=== PATIENT | male | born 1950 | race Two or more races ===

== ENCOUNTER 2022-12-17 08:10 | Inpatient (IN) | payer OTHER, MEDICAID ==
[~2022-12-17] VITALS: Ht 170.2 cm; Wt 95.3 kg
[2022-12-17 08:54] LABS: Basophils # (auto) 0 10 ^3/uL (0-0.2); Basophils % (auto) 0.4 % (0.0-2.0); Eosinophils # (auto) 0.1 10 ^3/uL (0-0.8); Eosinophils % (auto) 0.8 % (0.0-7.0); Hematocrit 43.8 % (41.0-53.0); Lymphocytes % (auto) 10.3 % (10.0-50.0); Mean Corpuscular Hgb Conc. 34.3 g/dL (32.0-36.0); Mean Corpuscular Volume 93.5 fL (80.0-100.0); Monocytes # (auto) 0.7 10 ^3/uL (0-1.3); Neutrophils # (auto) 7.9 10 ^3/uL (1.6-8.6); Neutrophils % (auto) 81.5 % (37.0-80.0); Nucleated Red Blood Cells % 0.1 %; Red Blood Cells 4.69 10^6/uL (4.5-5.90); Red Cell Distribution Width 12.9 % (11.8-14.3); White Blood Cell 9.6 10^3/uL (4.4-10.8)
[2022-12-17 09:14] LABS: Alanine Aminotransferase 15 U/L (7-40); Albumin 4.6 g/dL (3.2-4.8); Alkaline Phosphatase 102 U/L (46-116); Anion Gap 9 (5-15); Aspartate Aminotransferase 10 U/L (13-40); BUN/Creatinine Ratio 13.3 (10.0-20.0); Blood Urea Nitrogen 12 mg/dL (9-23); Calcium 9.5 mg/dL (8.5-10.1); Carbon Dioxide 27 mmol/L (20-30); Chloride 105 mmol/L (98-107); Glucose 104 mg/dL (74-106); Potassium 3.7 mmol/L (3.5-5.1); Sodium 141 mmol/L (136-145)
[2022-12-17 09:15] LABS: Bilirubin, Total 1.2 mg/dL (0.2-1.0); Total Protein 7.9 g/dL (5.7-8.2)
[2022-12-17 09:16] LABS: Urine Bacteria NONE SEEN /hpf (None Seen); Urine Blood Negative /uL (Negative); Urine Clarity Clear (Clear); Urine Color Yellow (Yellow); Urine Protein, UAD 1+ (Negative); Urine Specific Gravity 1.027 (1.001-1.035); Urine Urobilinogen Normal (Negative); Urine WBC 3 /hpf (0 - 3)
[2022-12-17] MEDS ORDERED: HYDROmorphone HCL 2 MG/ML VL/or syr IV PRN (10:15)
[2022-12-17] MEDS ORDERED: DOCUSATE SOD 100 MG CAP PO PRN (10:15)
[2022-12-17] MEDS ORDERED: ONDANSETRON HCL 4 MG/2 ML VIAL IV PRN (10:15)
[2022-12-17] MEDS ORDERED: DEXTROSE (50%) 50ML SYRG IV PRN (10:15)
[2022-12-17] MEDS ORDERED: hydrALAZINE HCL 20 MG/ML VL IV PRN (10:15)
[2022-12-17 12:01] LABS: INR 1.09 (0.9-1.15); Partial Thromboplastin Time 28.7 SEC (24.5-34.5); Prothrombin Time 11.4 sec (9.3-11.8)
[2022-12-17] MEDS ORDERED: PIPERACILLIN-TAZOB 3.375GM 100 ML IV ONE (13:30)
[2022-12-17] MEDS: PIPERACILLIN-TAZOB 3.375GM 100 ML IV SCH ×2 (20:00→21:46)
[2022-12-17] MEDS: InsuLIN REG 1unit/0.01ml Soln (100units/ml) SC SCH (21:19)
[2022-12-17] MEDS: ACCU-CHEK COMFORT CURVE STRIP VI SCH (21:20)
[2022-12-17] MEDS: SODIUM CHLORIDE 0.9% 1,000 ML IV SCH (21:37)
[2022-12-17] MEDS: PANTOPRAZOLE 40 MG/10 ML VIAL INJ IV SCH (21:46)
[2022-12-18] MEDS: ACCU-CHEK COMFORT CURVE STRIP VI SCH ×5 (02:33→22:06)
[2022-12-18] MEDS: InsuLIN REG 1unit/0.01ml Soln (100units/ml) SC SCH ×5 (02:33→22:06)
[2022-12-18] MEDS: SODIUM CHLORIDE 0.9% 1,000 ML IV SCH ×2 (02:55→07:28)
[2022-12-18] MEDS: PIPERACILLIN-TAZOB 3.375GM 100 ML IV SCH ×2 (05:29→12:38)
[2022-12-18 07:06] LABS: Basophils # (auto) 0.1 10 ^3/uL (0-0.2); Basophils % (auto) 0.7 % (0.0-2.0); Eosinophils # (auto) 0.1 10 ^3/uL (0-0.8); Eosinophils % (auto) 1.2 % (0.0-7.0); Hematocrit 42.6 % (41.0-53.0); Hemoglobin 14.4 g/dL (13.5-17.5); Lymphocytes # (auto) 1.4 10 ^3/uL (0.4-5.4); Lymphocytes % (auto) 14.6 % (10.0-50.0); Mean Corpuscular Hemoglobin 32.2 pg (28.0-32.0); Mean Corpuscular Hgb Conc. 33.8 g/dL (32.0-36.0); Mean Corpuscular Volume 95.2 fL (80.0-100.0); Monocytes # (auto) 1.1 10 ^3/uL (0-1.3); Monocytes % (auto) 11.8 % (0.0-12.0); Neutrophils # (auto) 6.7 10 ^3/uL (1.6-8.6); Neutrophils % (auto) 71.7 % (37.0-80.0); Nucleated Red Blood Cells % 0.1 %; Red Blood Cells 4.47 10^6/uL (4.5-5.90); White Blood Cell 9.3 10^3/uL (4.4-10.8)
[2022-12-18 07:14] LABS: Alanine Aminotransferase 12 U/L (7-40); Albumin 4.7 g/dL (3.2-4.8); Alkaline Phosphatase 108 U/L (46-116); Anion Gap 12 (5-15); Aspartate Aminotransferase 16 U/L (13-40); BUN/Creatinine Ratio 19.1 (10.0-20.0); Bilirubin, Total 1.2 mg/dL (0.2-1.0); Blood Urea Nitrogen 17 mg/dL (9-23); Calcium 9.6 mg/dL (8.7-10.4); Carbon Dioxide 25 mmol/L (20-30); Chloride 106 mmol/L (98-107); Glucose 85 mg/dL (74-106); Potassium 3.8 mmol/L (3.5-5.1); Sodium 143 mmol/L (136-145); Total Protein 7.9 g/dL (5.7-8.2)
[2022-12-18] MEDS: PANTOPRAZOLE 40 MG/10 ML VIAL INJ IV SCH ×2 (07:27→22:06)
[2022-12-18 07:48] VITALS: PULSE 76; RESP 18; O2SAT 99
[2022-12-18] MEDS: D5W/SOD CHL 0.45% 1,000 ML IV SCH (13:28)
[2022-12-18 13:55] VITALS: RESP 18; O2SAT 99
[2022-12-18] MEDS ORDERED: GABA-1250 PO (14:08)
[2022-12-18] MEDS ORDERED: PIOG1TAB51 PO (14:08)
[2022-12-18] MEDS ORDERED: PANT40T PO (14:08)
[2022-12-18] MEDS ORDERED: METF-371 PO (14:08)
[2022-12-18] MEDS ORDERED: ASPI-325 PO (14:08)
[2022-12-18] MEDS ORDERED: DICL1GEL73 TOP (14:08)
[2022-12-18] MEDS ORDERED: SEMA2INJ3 SC (14:08)
[2022-12-18] MEDS ORDERED: NIFE1TAB36 PO (14:08)
[2022-12-18] MEDS ORDERED: SITA100T7 PO (14:08)
[2022-12-18] MEDS ORDERED: FUR20T PO (14:08)
[2022-12-18] MEDS ORDERED: INSLANTI SC (14:08)
[2022-12-18] MEDS ORDERED: SEMA3TAB2 PO (14:08)
[2022-12-18] MEDS ORDERED: DULA1INJ SC (14:08)
[2022-12-18] MEDS ORDERED: LABE200T6 PO (14:08)
[2022-12-18] MEDS ORDERED: TRIO1TP TOP (14:08)
[2022-12-18] MEDS ORDERED: FINE20TA PO (14:08)
[2022-12-18] MEDS ORDERED: DOCU-265 PO (14:08)
[2022-12-18] MEDS ORDERED: EMPA1TAB3 PO (14:08)
[2022-12-18] MEDS ORDERED: INSU1INJ19 SC (14:08)
[2022-12-18] MEDS ORDERED: DAPA1TAB4 PO (14:08)
[2022-12-18] MEDS ORDERED: LOSA100T58 PO (14:08)
[2022-12-18] MEDS: metroNIDAZOLE 500MG/100ML 100 ML IV SCH ×2 (14:19→22:05)
[2022-12-18 14:36] VITALS: BP 137/77; PULSE 75; RESP 18; TEMP 98.3; O2SAT 96
[2022-12-18 17:00] VITALS: BP 142/66; PULSE 64; RESP 14; TEMP 98.2; O2SAT 99
[2022-12-18 20:00] VITALS: BP 129/76; PULSE 58; RESP 16; RESP 18; TEMP 98.2; O2SAT 95
[2022-12-18 22:00] VITALS: BP 113/74; PULSE 58; RESP 18; TEMP 98.2; O2SAT 95
[2022-12-19] VITALS (7 sets, daily range): BP systolic 118–160; BP diastolic 65–83; PULSE 58–71; RESP 14–20; TEMP 98–98.6; O2SAT 95–98
[2022-12-19] MEDS: D5W/SOD CHL 0.45% 1,000 ML IV SCH ×2 (02:55→15:55)
[2022-12-19] MEDS: metroNIDAZOLE 500MG/100ML 100 ML IV SCH ×3 (06:00→21:56)
[2022-12-19] MEDS: ACCU-CHEK COMFORT CURVE STRIP VI SCH ×4 (06:00→22:07)
[2022-12-19] MEDS: InsuLIN REG 1unit/0.01ml Soln (100units/ml) SC SCH ×4 (06:00→22:07)
[2022-12-19] MEDS: PANTOPRAZOLE 40 MG/10 ML VIAL INJ IV SCH ×2 (09:04→21:58)
[2022-12-19] MEDS: cefTRIAXone 1GM/50ML D5W 50 ML IV SCH (09:04)
[2022-12-20 05:00] VITALS: BP 146/82; PULSE 65; RESP 16; TEMP 97.9; O2SAT 97
[2022-12-20] MEDS: metroNIDAZOLE 500MG/100ML 100 ML IV SCH ×2 (05:08→14:54)
[2022-12-20] MEDS: D5W/SOD CHL 0.45% 1,000 ML IV SCH ×2 (05:09→11:06)
[2022-12-20] MEDS: InsuLIN REG 1unit/0.01ml Soln (100units/ml) SC SCH ×3 (06:00→17:25)
[2022-12-20] MEDS: ACCU-CHEK COMFORT CURVE STRIP VI SCH ×3 (06:06→17:25)
[2022-12-20 06:42] LABS: Chloride 108 mmol/L (98-107); Potassium 3.2 mmol/L (3.5-5.1); Sodium 141 mmol/L (136-145)
[2022-12-20 06:43] LABS: Anion Gap 8 (5-15); Calcium 8.9 mg/dL (8.5-10.1); Carbon Dioxide 25 mmol/L (20-30)
[2022-12-20 06:45] LABS: Basophils # (auto) 0.1 10 ^3/uL (0-0.2); Basophils % (auto) 0.7 % (0.0-2.0); Eosinophils # (auto) 0.2 10 ^3/uL (0-0.8); Eosinophils % (auto) 2.9 % (0.0-7.0); Hematocrit 40.6 % (41.0-53.0); Hemoglobin 13.5 g/dL (13.5-17.5); Lymphocytes # (auto) 1.4 10 ^3/uL (0.4-5.4); Mean Corpuscular Hemoglobin 31.4 pg (28.0-32.0); Mean Corpuscular Hgb Conc. 33.2 g/dL (32.0-36.0); Mean Corpuscular Volume 94.7 fL (80.0-100.0); Monocytes # (auto) 1.1 10 ^3/uL (0-1.3); Monocytes % (auto) 13.8 % (0.0-12.0); Neutrophils # (auto) 5.2 10 ^3/uL (1.6-8.6); Neutrophils % (auto) 65.6 % (37.0-80.0); Nucleated Red Blood Cells % 0.1 %; Red Blood Cells 4.29 10^6/uL (4.5-5.90); Red Cell Distribution Width 13.1 % (11.8-14.3)
[2022-12-20 06:48] LABS: Glucose 103 mg/dL (74-106)
[2022-12-20 06:51] LABS: BUN/Creatinine Ratio 6.8 (10.0-20.0); Blood Urea Nitrogen < 5 mg/dL (9-23)
[2022-12-20 08:00] VITALS: BP 129/76; PULSE 58; PULSE 62; PULSE 63; RESP 16; RESP 18; RESP 20; TEMP 98.2; O2SAT 95
[2022-12-20 08:25] VITALS: BP 148/84; PULSE 63; RESP 20; TEMP 98.3; O2SAT 95
[2022-12-20] MEDS: PANTOPRAZOLE 40 MG/10 ML VIAL INJ IV SCH (11:02)
[2022-12-20] MEDS: cefTRIAXone 1GM/50ML D5W 50 ML IV SCH (11:02)
[2022-12-20] MEDS ORDERED: IOHEXOL 300 MG/ML 100ML BOTTLE IJ ONE (11:35)
[2022-12-20] MEDS ORDERED: OMNIPAQUE 12mg/ml 500ml ORAL SOLUTION PO ONE (11:36)
[2022-12-20 12:35] VITALS: BP 147/80; PULSE 72; RESP 18; TEMP 97.9; O2SAT 94
[2022-12-20] MEDS ORDERED: POTASSIUM EFFERVESENT TAB 25 MEQ PO ONE (13:45)
[2022-12-20] MEDS ORDERED: METR-344 PO (15:16)
[2022-12-20] MEDS ORDERED: LEVO500T91 PO (15:16)
[2022-12-20 16:40] VITALS: BP 160/87; PULSE 63; RESP 19; TEMP 97.9; O2SAT 97
[2022-12-20 17:34] VITALS: BP 147/80; PULSE 72; RESP 18; TEMP 97.9; O2SAT 94
== END 2022-12-20 19:04 | disposition home or self-care (01) | DRG 379 ==
LOC: ER 08:10 → OVERFLOW 10:22 → WEST WING 12-18 13:42
PROVIDERS: ADMIT Nurse Practitioner Family; ATTEND Nurse Practitioner Acute Care
DX: K57.33 Diverticulitis of large intestine without perforation or abscess with bleeding (principal); K76.0 Fatty (change of) liver, not elsewhere classified; I11.0 Hypertensive heart disease with heart failure; E78.5 Hyperlipidemia, unspecified; E66.9 Obesity, unspecified; E11.65 Type 2 diabetes mellitus with hyperglycemia; I50.9 Heart failure, unspecified; Z88.5 Allergy status to narcotic agent; Z79.899 Other long term (current) drug therapy; Z68.32 Body mass index [BMI] 32.0-32.9, adult
CPT/HCPCS: 36415; 71045; 74176; 74177; 80048; 80053; 81001; 82378; 82962; 83605; 84484; 85025; 85610; 85730; 87040; 93005; C9113; G0378; J0696; J1815; J2543; J3490

== ENCOUNTER → 2023-03-31 | Outpatient (CLI) | payer OTHER ==
[~2023-03-31] MED LIST: ASPI-325 PO; DAPA1TAB4 PO; DICL1GEL73 TOP; DOCU-265 PO; DULA1INJ SC; EMPA1TAB3 PO; FINE20TA PO; FUR20T PO; GABA-1250 PO; INSLANTI SC; INSU1INJ19 SC; LABE200T6 PO; LEVO500T91 PO; LOSA100T58 PO; METF-371 PO; METR-344 PO; NIFE1TAB36 PO; PANT40T PO; PIOG1TAB51 PO; SEMA2INJ3 SC; SEMA3TAB2 PO; SITA100T7 PO; TRIO1TP TOP
== END | disposition home or self-care (01) ==
LOC: Rad HDHVI 08:03
PROVIDERS: ATTEND Internal Medicine Cardiovascular Disease
DX: Z01.818 Encounter for other preprocedural examination (principal); I08.1 Rheumatic disorders of both mitral and tricuspid valves
CPT/HCPCS: 93306

== ENCOUNTER → 2023-04-27 | Outpatient (CLI) | payer OTHER ==
[~2023-04-27] VITALS: Ht 170.2 cm; Wt 94.8 kg
== END | disposition home or self-care (01) ==
LOC: Rad HDHVI 08:28
PROVIDERS: ATTEND Internal Medicine Cardiovascular Disease
DX: R07.89 Other chest pain (principal); I10 Essential (primary) hypertension; E11.9 Type 2 diabetes mellitus without complications; R00.2 Palpitations; E78.00 Pure hypercholesterolemia, unspecified; Z82.49 Family history of ischemic heart disease and other diseases of the circulatory system; Z79.82 Long term (current) use of aspirin; Z79.84 Long term (current) use of oral hypoglycemic drugs; Z79.899 Other long term (current) drug therapy
CPT/HCPCS: 78452; 93017; 96374; A9500